=== PATIENT | male | born 1960 | race Caucasian/White ===

== ENCOUNTER 2016-09-22 15:00 | Inpatient (IN) | payer MEDICAID ==
[~2016-09-22] VITALS: Ht 165.1 cm; Wt 101.8 kg
[~2016-09-22 15:00] MED LIST: FOL1 PO; GOOD SENSE ASPI81 M3 PO; HUMULIN R100 U/1 M1 SC; HYDROCHLOROTHIA25 MG PO; LAC30L PO; LEVAQUIN750 MG PO; THI100 PO; ZESTRIL5 MG PO
[2016-09-22 16:06] LABS: BASOPHIL % 0.2 % (0-2)
[2016-09-22 16:08] LABS: CALCIUM 7.9 mg/dL (8.5-10.1); CHLORIDE SERUM 105 mmol/L (98-107); CREATININE SERUM 1.1 mg/dL (0.7-1.3); GFR1 > 60 mL/min; GLUCOSE SERUM 242 mg/dL (74-106); POTASSIUM SERUM 3.7 mmol/L (3.5-5.1); SODIUM SERUM 135 mmol/L (136-145)
[2016-09-22 16:09] LABS: PLATELET COUNT 40 x10^3mcL (130-400); RED CELL DISTRIBUTION WIDTH 16.1 % (11.5-14.5)
[2016-09-22 16:13] LABS: ALKALINE PHOSPHATASE 144 U/L (46-116); ALT/SGPT 28 U/L (16-63); AST/SGOT 48 U/L (15-37); BILIRUBIN TOTAL 6.9 mg/dL (0.20-1.00)
[2016-09-22 16:14] LABS: ALBUMIN 2.7 g/dL (3.4-5.0)
[2016-09-22] MEDS ORDERED: METFORMIN500 M1 PO (16:34)
[2016-09-22] MEDS ORDERED: LOSARTAN POTASS25 M1 (16:34)
[2016-09-22] MEDS ORDERED: HYDROCHLOROTH12.5 M2 PO (17:20)
[2016-09-22 17:43] VITALS: BP 144/60
[2016-09-22 18:41] LABS: MAGNESIUM 2.2 mg/dL (1.8-2.4); PHOSPHOROUS 2.5 mg/dL (2.5-4.9)
[2016-09-22 18:43] LABS: T3 TOTAL 0.65 ng/mL
[2016-09-22 18:53] LABS: FREE T4 1.09 ng/dL (0.76-1.46); T4(THYROXINE) 5.3 ug/dL (4.7-13.3)
[2016-09-22 20:40] VITALS: BP 157/70
[2016-09-23 05:55] VITALS: BP 164/69
[2016-09-23 06:41] LABS: CALCIUM 7.9 mg/dL (8.5-10.1); CARBON DIOXIDE 20.3 mmol/L (21-32); CHLORIDE SERUM 107 mmol/L (98-107); CREATININE SERUM 0.9 mg/dL (0.7-1.3); GFR1 > 60 mL/min; GLUCOSE SERUM 130 mg/dL (74-106); MAGNESIUM 1.9 mg/dL (1.8-2.4); PHOSPHOROUS 2.6 mg/dL (2.5-4.9); SODIUM SERUM 136 mmol/L (136-145)
[2016-09-23 07:02] LABS: BASOPHIL % 0.3 % (0-2); RED CELL DISTRIBUTION WIDTH 15.6 % (11.5-14.5)
[2016-09-23 07:03] LABS: PLATELET COUNT 34 x10^3mcL (130-400)
[2016-09-23 07:20] VITALS: BP 167/70
[2016-09-23 10:18] LABS: UA SPECIFIC GRAVITY 1.025 (1.005-1.035); microscopic required? YES; urine erythrocyte 2+ (NEGATIVE)
[2016-09-23 10:33] LABS: AMPHETAMINE QUAL UR NONE DETECTED (NEG <=1000)
[2016-09-23 11:10] VITALS: Ht 165.1 cm; Wt 101.8 kg
[2016-09-23 12:25] VITALS: BP 156/47
[2016-09-23 18:35] VITALS: BP 168/66
[2016-09-23 21:28] VITALS: BP 136/54
[2016-09-24 06:13] VITALS: BP 176/65
[2016-09-24 06:20] LABS: CALCIUM 7.5 mg/dL (8.5-10.1); CARBON DIOXIDE 18.2 mmol/L (21-32); CHLORIDE SERUM 106 mmol/L (98-107); CREATININE SERUM 0.9 mg/dL (0.7-1.3); GFR1 > 60 mL/min; GLUCOSE SERUM 98 mg/dL (74-106); POTASSIUM SERUM 3.6 mmol/L (3.5-5.1); SODIUM SERUM 136 mmol/L (136-145)
[2016-09-24 06:30] VITALS: BP 151/57
[2016-09-24 06:40] LABS: BASOPHIL % 0.5 % (0-2)
[2016-09-24 07:00] LABS: PLATELET COUNT 43 x10^3mcL (130-400)
[2016-09-24 09:53] VITALS: BP 161/66
[2016-09-24 13:48] VITALS: BP 157/67
[2016-09-24 17:33] VITALS: BP 147/50
[2016-09-24 19:20] VITALS: BP 163/62
[2016-09-25 06:17] VITALS: BP 164/56
[2016-09-25 06:23] LABS: CALCIUM 7.9 mg/dL (8.5-10.1); CARBON DIOXIDE 20.6 mmol/L (21-32); CHLORIDE SERUM 104 mmol/L (98-107); CREATININE SERUM 0.9 mg/dL (0.7-1.3); GFR1 > 60 mL/min; GLUCOSE SERUM 97 mg/dL (74-106); POTASSIUM SERUM 3.6 mmol/L (3.5-5.1); SODIUM SERUM 136 mmol/L (136-145)
[2016-09-25 06:44] LABS: BASOPHIL % 0.4 % (0-2)
[2016-09-25 06:53] LABS: RED CELL DISTRIBUTION WIDTH 16.1 % (11.5-14.5)
[2016-09-25 06:54] LABS: PLATELET COUNT 49 x10^3mcL (130-400)
[2016-09-25 10:20] VITALS: BP 157/64; BP 162/69
[2016-09-25] MEDS ORDERED: COZAAR100 MG PO (10:45)
[2016-09-25] MEDS ORDERED: AUG500 GT (10:48)
[2016-09-25 12:29] VITALS: BP 138/67
[2016-09-25] MEDS ORDERED: XIFAXAN550 M1 PO (13:19)
[2016-09-25] MEDS ORDERED: CONSTULOSE10 GM/151 PO (13:21)
[2016-09-25 15:17] VITALS: BP 155/61
[2016-09-25 20:56] VITALS: BP 168/58
[2016-09-26 05:42] VITALS: BP 155/61
[2016-09-26 06:52] LABS: BASOPHIL % 0.4 % (0-2)
[2016-09-26 06:55] LABS: CALCIUM 8.1 mg/dL (8.5-10.1); CARBON DIOXIDE 23.3 mmol/L (21-32); CHLORIDE SERUM 105 mmol/L (98-107); CREATININE SERUM 0.9 mg/dL (0.7-1.3); GFR1 > 60 mL/min; GLUCOSE SERUM 102 mg/dL (74-106); MAGNESIUM 1.7 mg/dL (1.8-2.4); PHOSPHOROUS 4.1 mg/dL (2.5-4.9); POTASSIUM SERUM 3.5 mmol/L (3.5-5.1); SODIUM SERUM 138 mmol/L (136-145)
[2016-09-26 07:01] LABS: PLATELET COUNT 48 x10^3mcL (130-400); RED CELL DISTRIBUTION WIDTH 16.2 % (11.5-14.5)
[2016-09-26 10:34] VITALS: BP 159/69
[2016-09-26] MEDS ORDERED: BLOOD GLUCOSE1 EACH MC (12:52)
== END 2016-09-26 14:10 | disposition home or self-care (01) | DRG 383 ==
LOC: ED 15:00 → DU 16:11
PROVIDERS: Emergency Medicine; Family Medicine; ADMIT Family Medicine
DX: L03.114 Cellulitis of left upper limb (principal); N17.0 Acute kidney failure with tubular necrosis; K72.91 Hepatic failure, unspecified with coma; E43 Unspecified severe protein-calorie malnutrition; D68.8 Other specified coagulation defects; D68.4 Acquired coagulation factor deficiency; E11.65 Type 2 diabetes mellitus with hyperglycemia; K74.60 Unspecified cirrhosis of liver; E87.1 Hypo-osmolality and hyponatremia; F10.21 Alcohol dependence, in remission; K81.9 Cholecystitis, unspecified; I10 Essential (primary) hypertension; D64.9 Anemia, unspecified; E66.9 Obesity, unspecified; Z68.37 Body mass index [BMI] 37.0-37.9, adult; Z79.4 Long term (current) use of insulin; Z79.84 Long term (current) use of oral hypoglycemic drugs; Z87.891 Personal history of nicotine dependence
CPT/HCPCS: 83880; 84439; J2543; J3490; J7030; Q0092

== ENCOUNTER 2017-09-02 18:03 | Inpatient (IN) | payer MEDICAID ==
[~2017-09-02] VITALS: Ht 167.6 cm; Wt 96.8 kg
[~2017-09-02 18:03] MED LIST changes: +AUG500 GT; +BLOOD GLUCOSE1 EACH MC; +CONSTULOSE10 GM/151 PO; +COZAAR100 MG PO; +HYDROCHLOROTH12.5 M2 PO; +LOSARTAN POTASS25 M1; +METFORMIN500 M1 PO; +XIFAXAN550 M1 PO
[2017-09-02 18:12] VITALS: Ht 167.6 cm; Wt 96.8 kg
[2017-09-02 18:47] LABS: BASOPHIL % 0.8 % (0-2)
[2017-09-02 19:10] LABS: CALCIUM 8.1 mg/dL (8.5-10.1); CHLORIDE SERUM 106 mmol/L (98-107); CREATININE SERUM 0.9 mg/dL (0.7-1.3); GFR1 > 60 mL/min; GLUCOSE SERUM 94 mg/dL (74-106); SODIUM SERUM 138 mmol/L (136-145)
[2017-09-02 19:14] LABS: ALBUMIN 2.3 g/dL (3.4-5.0); ALKALINE PHOSPHATASE 190 U/L (46-116); ALT/SGPT 32 U/L (16-63); AST/SGOT 57 U/L (15-37); BILIRUBIN TOTAL 6.19 mg/dL (0.20-1.00); TOTAL PROTEIN, SERUM 6.4 g/dL (6.4-8.2)
[2017-09-02 19:19] LABS: PLATELET COUNT 39 x10^3mcL (130-400); RED CELL DISTRIBUTION WIDTH 16.1 % (11.5-14.5)
[2017-09-02 21:45] LABS: UA SPECIFIC GRAVITY >=1.030 (1.005-1.035); microscopic required? YES; urine erythrocyte TRACE (NEGATIVE)
[2017-09-02 23:00] VITALS: BP 146/49
[2017-09-02 23:01] LABS: T3 TOTAL 0.93 ng/mL
[2017-09-02 23:07] LABS: FREE T4 1.04 ng/dL (0.76-1.46)
[2017-09-02 23:08] LABS: FREE THYROXINE INDEX 1.2 ug/dL (1.4-4.5); T4(THYROXINE) 3.3 ug/dL (4.7-13.3)
[2017-09-02 23:09] LABS: AMPHETAMINE QUAL UR NONE DETECTED (See below)
[2017-09-02 23:19] LABS: PHOSPHOROUS 2.8 mg/dL (2.5-4.9)
[2017-09-02 23:20] LABS: CHOLESTEROL/HDL RATIO 2.4
[2017-09-03 05:46] VITALS: BP 130/61
[2017-09-03 07:27] LABS: BASOPHIL % 0.3 % (0-2)
[2017-09-03 07:28] LABS: CALCIUM 8.3 mg/dL (8.5-10.1); CARBON DIOXIDE 23.5 mmol/L (21-32); CHLORIDE SERUM 107 mmol/L (98-107); CREATININE SERUM 0.8 mg/dL (0.7-1.3); GFR1 > 60 mL/min; GLUCOSE SERUM 93 mg/dL (74-106); PHOSPHOROUS 2.9 mg/dL (2.5-4.9); POTASSIUM SERUM 3.6 mmol/L (3.5-5.1); SODIUM SERUM 139 mmol/L (136-145)
[2017-09-03 07:34] LABS: PLATELET COUNT 34 x10^3mcL (130-400); RED CELL DISTRIBUTION WIDTH 15.8 % (11.5-14.5)
[2017-09-03 09:30] VITALS: BP 145/56
[2017-09-03 13:46] VITALS: BP 149/61
[2017-09-03 16:04] VITALS: BP 149/61
== END 2017-09-03 18:05 | disposition home or self-care (01) ==
LOC: ED 18:03 → DU 21:18
PROVIDERS: Emergency Medicine; Internal Medicine
DX: K74.60 Unspecified cirrhosis of liver (principal); N17.0 Acute kidney failure with tubular necrosis; E43 Unspecified severe protein-calorie malnutrition; K72.90 Hepatic failure, unspecified without coma; D69.59 Other secondary thrombocytopenia; K83.1 Obstruction of bile duct; E83.42 Hypomagnesemia; E11.9 Type 2 diabetes mellitus without complications; I10 Essential (primary) hypertension; N39.0 Urinary tract infection, site not specified; R80.9 Proteinuria, unspecified; Z68.35 Body mass index [BMI] 35.0-35.9, adult; Z87.891 Personal history of nicotine dependence; Z79.84 Long term (current) use of oral hypoglycemic drugs
CPT/HCPCS: 83880; 84439; G0480; J0696; J1940; J3475; J7030; Q0092

== ENCOUNTER 2017-10-05 13:29 | Inpatient (IN) | payer MEDICAID ==
[~2017-10-05] VITALS: Ht 165.1 cm; Wt 100.7 kg
[2017-10-05 15:03] LABS: BILIRUBIN TOTAL 10.2 mg/dL (0.20-1.00); CALCIUM 8.5 mg/dL (8.5-10.1); POTASSIUM SERUM 4.6 mmol/L (3.5-5.1)
[2017-10-05 15:06] LABS: ALBUMIN 2.4 g/dL (3.4-5.0); CREATININE SERUM 5.1 mg/dL (0.7-1.3); TOTAL PROTEIN, SERUM 6.1 g/dL (6.4-8.2)
[2017-10-05 15:10] LABS: BASOPHIL % 0 % (0-2); RED CELL DISTRIBUTION WIDTH 16.1 % (11.5-14.5)
[2017-10-05 15:11] LABS: PLATELET COUNT 65 x10^3mcL (130-400)
[2017-10-05 15:31] LABS: microscopic required? YES; urine erythrocyte 3+ (NEGATIVE)
[2017-10-05] MEDS ORDERED: METFORMIN HCL1000 MG PO (16:15)
[2017-10-05 16:34] LABS: PHOSPHOROUS 5.7 mg/dL (2.5-4.9)
[2017-10-05 16:36] LABS: CHOLESTEROL/HDL RATIO 2.9
[2017-10-05 16:37] LABS: T3 TOTAL 0.67 ng/mL
[2017-10-05 16:45] LABS: FREE T4 1.17 ng/dL (0.76-1.46); FREE THYROXINE INDEX 1.7 ug/dL (1.4-4.5); T4(THYROXINE) 4.9 ug/dL (4.7-13.3)
[2017-10-05 16:47] VITALS: BP 136/46
[2017-10-05 20:35] VITALS: BP 142/52
[2017-10-06] VITALS (8 sets, daily range): BP systolic 115–143; BP diastolic 54–90
[2017-10-06 06:15] LABS: MAGNESIUM 2.1 mg/dL (1.8-2.4); PHOSPHOROUS 6.3 mg/dL (2.5-4.9)
[2017-10-06 06:27] LABS: BILIRUBIN TOTAL 8.89 mg/dL (0.20-1.00); CALCIUM 8.5 mg/dL (8.5-10.1); CARBON DIOXIDE 17.1 mmol/L (21-32); POTASSIUM SERUM 4.8 mmol/L (3.5-5.1); TOTAL PROTEIN, SERUM 6.3 g/dL (6.4-8.2)
[2017-10-06 06:30] LABS: ALBUMIN 2.3 g/dL (3.4-5.0)
[2017-10-06 09:06] LABS: BASOPHIL % 0.4 % (0-2)
[2017-10-06 09:08] LABS: PLATELET COUNT 60 x10^3mcL (130-400); RED CELL DISTRIBUTION WIDTH 16.3 % (11.5-14.5)
[2017-10-06 16:08] LABS: AMPHETAMINE QUAL UR NONE DETECTED (See below)
[2017-10-06 17:04] LABS: SOURCE FLUID PARACENTESIS
[2017-10-06 17:08] LABS: APPEARANCE FLUID CLEAR; COLOR FLUID YELLOW
[2017-10-06 17:10] LABS: LYMPHOCYTE FLUID 45 %; RBC FLUID 472 /cumm; WBC FLUID 222 /cumm
[2017-10-06 17:11] LABS: MONOCYTE FLUID 5 %
[2017-10-07 05:28] VITALS: BP 124/45
[2017-10-07 06:22] LABS: BASOPHIL % 0.3 % (0-2)
[2017-10-07 06:37] LABS: CALCIUM 8.1 mg/dL (8.5-10.1); CARBON DIOXIDE 19.8 mmol/L (21-32); MAGNESIUM 2.1 mg/dL (1.8-2.4); PHOSPHOROUS 6.6 mg/dL (2.5-4.9); POTASSIUM SERUM 4.9 mmol/L (3.5-5.1)
[2017-10-07 06:39] LABS: CREATININE SERUM 6.9 mg/dL (0.7-1.3)
[2017-10-07 06:49] LABS: PLATELET COUNT 58 x10^3mcL (130-400); RED CELL DISTRIBUTION WIDTH 16.5 % (11.5-14.5)
[2017-10-07 07:44] LABS: BILIRUBIN DIRECT 3.37 mg/dL (0.0-0.2); BILIRUBIN TOTAL 6.6 mg/dL (0.20-1.00)
[2017-10-07 07:45] LABS: TOTAL PROTEIN, SERUM 5.2 g/dL (6.4-8.2)
[2017-10-07 09:30] VITALS: BP 108/42
[2017-10-07 12:40] VITALS: BP 135/57
[2017-10-07 17:08] VITALS: BP 137/56
[2017-10-07 20:52] VITALS: BP 121/62
[2017-10-08] VITALS (8 sets, daily range): BP systolic 90–129; BP diastolic 30–58
[2017-10-08 06:16] LABS: BASOPHIL % 0.6 % (0-2)
[2017-10-08 06:23] LABS: PLATELET COUNT 59 x10^3mcL (130-400); RED CELL DISTRIBUTION WIDTH 16.8 % (11.5-14.5)
[2017-10-08 06:40] LABS: BILIRUBIN DIRECT 3.1 mg/dL (0.0-0.2); CALCIUM 7.7 mg/dL (8.5-10.1); CARBON DIOXIDE 15.6 mmol/L (21-32); MAGNESIUM 2.2 mg/dL (1.8-2.4); PHOSPHOROUS 6.5 mg/dL (2.5-4.9); POTASSIUM SERUM 4.8 mmol/L (3.5-5.1)
[2017-10-08 06:45] LABS: ALBUMIN 2.2 g/dL (3.4-5.0); TOTAL PROTEIN, SERUM 4.8 g/dL (6.4-8.2)
[2017-10-09 03:33] VITALS: BP 103/41
[2017-10-09 08:26] VITALS: Ht 165.1 cm; Wt 100.7 kg
== END 2017-10-09 12:06 | disposition expired | DRG 241 ==
LOC: ED 13:29 → MU 15:35 → DU 15:35 → MU 16:37 → DU 16:53 → IC 10-08 21:27
PROVIDERS: Emergency Medicine; Family Medicine; Internal Medicine Gastroenterology
PROC: 0W9G3ZZ Drainage of Peritoneal Cavity, Percutaneous Approach (ICD-10-PCS; 2017-10-05)
PROC: 06L38CZ Occlusion of Esophageal Vein with Extraluminal Device, Via Natural or Artificial Opening Endoscopic (ICD-10-PCS; principal; 2017-10-07 09:30)
PROC: 0DB68ZX Excision of Stomach, Via Natural or Artificial Opening Endoscopic, Diagnostic (ICD-10-PCS; 2017-10-07 09:30)
PROC: 05HM33Z Insertion of Infusion Device into Right Internal Jugular Vein, Percutaneous Approach (ICD-10-PCS; 2017-10-08)
PROC: B543ZZA Ultrasonography of Right Jugular Veins, Guidance (ICD-10-PCS; 2017-10-08)
PROC: 5A1D70Z Performance of Urinary Filtration, Intermittent, Less than 6 Hours Per Day (ICD-10-PCS; 2017-10-08)
PROC: 0BH17EZ Insertion of Endotracheal Airway into Trachea, Via Natural or Artificial Opening (ICD-10-PCS; 2017-10-09)
PROC: 5A12012 Performance of Cardiac Output, Single, Manual (ICD-10-PCS; 2017-10-09)
DX: K26.4 Chronic or unspecified duodenal ulcer with hemorrhage (principal); K76.7 Hepatorenal syndrome; N17.0 Acute kidney failure with tubular necrosis; E43 Unspecified severe protein-calorie malnutrition; I85.11 Secondary esophageal varices with bleeding; D68.8 Other specified coagulation defects; E83.39 Other disorders of phosphorus metabolism; D69.59 Other secondary thrombocytopenia; K70.31 Alcoholic cirrhosis of liver with ascites; E87.1 Hypo-osmolality and hyponatremia; K70.40 Alcoholic hepatic failure without coma; K92.1 Melena; N39.0 Urinary tract infection, site not specified; R80.9 Proteinuria, unspecified; E11.9 Type 2 diabetes mellitus without complications; I10 Essential (primary) hypertension; F10.20 Alcohol dependence, uncomplicated; Z68.36 Body mass index [BMI] 36.0-36.9, adult; Z87.891 Personal history of nicotine dependence; Z79.84 Long term (current) use of oral hypoglycemic drugs
CPT/HCPCS: 43205; 43235; 49083; 83880; 84439; 87116; 87206; 88344; C1729; C9113; G0480; J0171; J0690; J1170; J1200; J1610; J1630; J1642; J1644; J1940; J2060; J2250; J2310; J2354; J3010; J3430; J3490; J7030; J7042; P9047; Q0092; Q0162